=== PATIENT | male | born 1990 | race African-American/Black ===

== ENCOUNTER 2017-02-07 11:55 | Emergency (ER) | payer OTHER ==
[~2017-02-07] VITALS: Ht 177.8 cm; Wt 73.5 kg
[~2017-02-07 11:55] MED LIST: /ACETCOD2T PO; CEPH2CAP PO
[2017-02-07] MEDS ORDERED: [UNRECOGNIZED DRUG - REMARK] PO (12:10)
[2017-02-07 13:43] VITALS: BP 131/77
== END 2017-02-07 13:47 | disposition home or self-care (01) ==
LOC: M ED 13:19
DX: N52.9 Male erectile dysfunction, unspecified (principal); Z79.899 Other long term (current) drug therapy; Z88.8 Allergy status to other drugs, medicaments and biological substances

== ENCOUNTER 2017-07-09 16:27 | Emergency (ER) | payer OTHER, SELFPAY ==
[~2017-07-09] VITALS: Ht 175.3 cm; Wt 72.7 kg
[~2017-07-09 16:27] MED LIST changes: +[UNRECOGNIZED DRUG - REMARK] PO
[2017-07-09] MEDS ORDERED: antidepressant (16:32)
[2017-07-09] MEDS ORDERED: cefTRIAXone SOD 250 MG VIAL (J0696) IM ONE (18:00)
[2017-07-09] MEDS ORDERED: AZITHROMYCIN 250 MG TAB PO ONE (18:00)
[2017-07-09] MEDS ORDERED: metroNIDAZOLE (FLAGYL) 500 MG TAB PO ONE (18:00)
[2017-07-09 18:34] VITALS: BP 138/76
== END 2017-07-09 18:42 | disposition home or self-care (01) ==
LOC: M ED 16:27
DX: Z20.2 Contact with and (suspected) exposure to infections with a predominantly sexual mode of transmission (principal); F99 Mental disorder, not otherwise specified; Z88.8 Allergy status to other drugs, medicaments and biological substances; Z79.899 Other long term (current) drug therapy
CPT/HCPCS: 87491; 87591; 96372; 99283; J0696

== ENCOUNTER → 2018-01-13 | Outpatient (REF) | payer OTHER ==
[2018-01-13 15:35] LABS: CHLAMYDIA DNA AMPLIFICATION NEGATIVE (NEGATIVE); GC DNA AMPLIFICATION NEGATIVE (NEGATIVE)
== END ==
LOC: M LAB REF 13:09
DX: Z11.3 Encounter for screening for infections with a predominantly sexual mode of transmission (principal)

== ENCOUNTER 2018-05-17 15:39 | Emergency (ER) | payer OTHER | END 2018-05-17 16:45 | disposition home or self-care (01) | LOC: M ED 15:39 | DX: S39.002A Unspecified injury of muscle, fascia and tendon of lower back, initial encounter (principal); X58.XXXA Exposure to other specified factors, initial encounter; Y92.89 Other specified places as the place of occurrence of the external cause; F43.10 Post-traumatic stress disorder, unspecified; F33.9 Major depressive disorder, recurrent, unspecified; F41.9 Anxiety disorder, unspecified; G47.33 Obstructive sleep apnea (adult) (pediatric); Z88.8 Allergy status to other drugs, medicaments and biological substances | CPT/HCPCS: 99282 ==

== ENCOUNTER → 2018-06-27 | Outpatient (REF) | payer OTHER | LOC: M LAB REF 16:55 | DX: L03.212 Acute lymphangitis of face (principal) ==

== ENCOUNTER 2018-07-25 23:54 | Emergency (ER) | payer OTHER ==
[2018-07-26] MEDS: NAPROXEN 250 MG TAB PO (03:50)
== END 2018-07-26 03:55 | disposition home or self-care (01) ==
LOC: M ED 23:54
DX: M25.531 Pain in right wrist (principal); W19.XXXA Unspecified fall, initial encounter; Y92.019 Unspecified place in single-family (private) house as the place of occurrence of the external cause
CPT/HCPCS: 73130

== ENCOUNTER 2018-08-14 06:40 | Emergency (ER) | payer OTHER ==
[2018-08-14] MEDS: AMOXICILLIN 500 MG CAP PO (06:58)
== END 2018-08-14 07:01 | disposition home or self-care (01) ==
LOC: M ED 06:40
DX: J02.0 Streptococcal pharyngitis (principal); Z91.89 Other specified personal risk factors, not elsewhere classified
CPT/HCPCS: 99282

== ENCOUNTER 2019-01-28 10:34 | Emergency (ER) | payer MEDICAID, OTHER ==
[~2019-01-28] VITALS: Ht 175.3 cm; Wt 75.0 kg
[~2019-01-28 10:34] MED LIST changes: -/ACETCOD2T PO; +ACET1TAB15 PO; +AMOX500C PO; +BACL10TA2 PO; +DICL75TA PO; +NAPR-837 PO; +antidepressant
[2019-01-28 10:35] VITALS: BP 132/64
[2019-01-28] MEDS ORDERED: ADVI200C5 PO (10:38)
[2019-01-28] MEDS ORDERED: AUGM875T28 PO (10:52)
[2019-01-28] MEDS ORDERED: AUGMENTIN 875 MG TAB PO ONE (11:00)
[2019-01-28] MEDS ORDERED: ACETAMINOPHEN 325 MG TAB PO ONE (11:00)
== END 2019-01-28 11:07 | disposition home or self-care (01) ==
LOC: M ED 10:34
DX: K02.9 Dental caries, unspecified (principal); K08.89 Other specified disorders of teeth and supporting structures; R68.84 Jaw pain; F41.9 Anxiety disorder, unspecified; F43.10 Post-traumatic stress disorder, unspecified; Z91.041 Radiographic dye allergy status

== ENCOUNTER → 2019-03-01 | Outpatient (REF) | payer OTHER ==
[~2019-03-01] MED LIST changes: +ADVI200C5 PO; +AUGM875T28 PO
[2019-03-01 20:33] LABS: CHLAMYDIA DNA AMPLIFICATION NEGATIVE (NEGATIVE); GC DNA AMPLIFICATION NEGATIVE (NEGATIVE)
== END ==
LOC: M LAB REF 16:44
PROVIDERS: ATTEND Physician Assistant
DX: Z11.3 Encounter for screening for infections with a predominantly sexual mode of transmission (principal)

== ENCOUNTER → 2019-03-21 | Outpatient (CLI) | payer OTHER ==
--- NOTE | 2019-03-24 10:12 | SLEEPMSLT ---
DATE OF PROCEDURE: 03/21/2019 ORDERING PROVIDER: Melanie Benítez NP Nocturnal polysomnography with multiple sleep latency testing was performed in this patient with complaints of excessive somnolence and nonrestorative sleep so as to assess sleep physiology. During the initial night testing, 7 hours and 16 minutes of data were reviewed. There were 376 minutes of sleep identified. Sleep latency was mildly prolonged at 29 minutes. Rapid eye movement (REM) latency was mildly prolonged at 131 minutes. Sleep architecture was reasonably well preserved with four to five REM cycles. Overall sleep efficiency was 80.1%. Electrocardiogram showed a wandering baseline with a sinus rhythm with an average heart rate 58 beats per minute. Rate ranged 40-80 beats per minute. Electroencephalogram (EEG) showed fairly normal waveforms for awake and sleep stages. There were no focal events identified. There was only one respiratory event identified of 10 seconds in duration or greater for an apnea-hypopnea index well within normal limits at 0.2. Significant snoring was noted over the course of study, however, respiratory related arousals occurred only 0.8 times per hour and no oxygen desaturations below 90%. There was minimal activity in the limb leads, one train of 30 events, and the limb movement arousal index was only 5.4. Night testing was followed by multiple sleep latency testing. The patient was offered five nap opportunities at 2-hour intervals. Sleep was achieved on four out of five nap opportunities with a mean sleep latency of 6.9 units. REM sleep was suggested on one of five nap opportunities, however, chin EMG criteria was not met. REM activity was seen in five epics with phasic REM in 1 epic. IMPRESSION: Nocturnal polysomnography with multiple sleep latency testing identified borderline hypersomnolence with a mean sleep latency of 6.9 with suggestion of REM sleep on one of five naps would support clinical diagnosis of narcolepsy. It should be noted that chin tone criteria was not seen.
== END ==
LOC: M SLEEP 19:21
PROVIDERS: ATTEND Nurse Practitioner Family
DX: R06.83 Snoring (principal)

== ENCOUNTER 2019-10-08 16:09 | Emergency (ER) | payer OTHER ==
[~2019-10-08] VITALS: Ht 175.3 cm; Wt 75.0 kg
--- NOTE | 2019-10-08 16:45 | REP ---
LEFT HAND COMPLETE: 10/08/2019. Clinical history: Trauma. Findings: Four views are provided. There were no prior studies available. Distal radius and ulna without fracture or focal lesion. Carpal bones and their joint spaces are preserved. 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 Distal carpal row unremarkable. CMC joints, metacarpals and MCP joints intact. The phalanges and their joints were unremarkable. Impression: 1. No visible fracture, avulsion or other acute finding. 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 Electronically Signed by All Hollingsworth MD 10/08/2019 04:36 P
[2019-10-08] MEDS ORDERED: LIDO1CRE2 TOP (17:24)
[2019-10-08 17:26] VITALS: BP 127/69
[2019-10-08] MEDS ORDERED: IBUPROFEN 600 MG TAB PO ONE (17:30)
[2019-10-08] MEDS ORDERED: BACT800T5 PO (17:49)
[2019-10-08] MEDS ORDERED: BACTRIM 160MG/800MG DS TAB PO ONE (18:00)
== END 2019-10-08 18:01 | disposition home or self-care (01) ==
LOC: M ED 16:09
DX: S60.922A Unspecified superficial injury of left hand, initial encounter (principal); L02.811 Cutaneous abscess of head [any part, except face]; W08.XXXA Fall from other furniture, initial encounter; Y92.098 Other place in other non-institutional residence as the place of occurrence of the external cause; Z87.81 Personal history of (healed) traumatic fracture; G47.419 Narcolepsy without cataplexy; Z88.8 Allergy status to other drugs, medicaments and biological substances

== ENCOUNTER 2020-01-02 14:49 | Emergency (ER) | payer OTHER ==
[~2020-01-02] VITALS: Ht 175.3 cm; Wt 73.2 kg
[~2020-01-02 14:49] MED LIST changes: +BACT800T5 PO; +LIDO1CRE2 TOP
[2020-01-02 15:37] LABS: INFLUENZA A AMPLIFICATION NEGATIVE (NEGATIVE); INFLUENZA B AMPLIFICATION POSITIVE (NEGATIVE)
[2020-01-02] MEDS ORDERED: ONDANSETRON 4 MG ORAL DISINTEGRATING TAB (Q0162 PER 1MG) PO ONE (16:30)
[2020-01-02] MEDS ORDERED: IBUPROFEN 600 MG TAB PO ONE (16:30)
[2020-01-02] MEDS ORDERED: ACETAMINOPHEN 500 MG TAB PO ONE (16:30)
[2020-01-02 17:03] LABS: APPEARANCE, URINE HAZY (CLEAR); BACTERIA, URINE AUTO NEGATIVE (NEGATIVE); BILIRUBIN, URINE AUTO NEGATIVE (NEGATIVE); BLOOD, URINE BLOOD NEGATIVE (NEGATIVE); COLOR, URINE YELLOW (YELLOW); GLUCOSE, URINE (UA) AUTO NEGATIVE (NEGATIVE); KETONE, URINE AUTO TRACE mg/dL (NEGATIVE); LEUKOCYTE ESTERASE, URINE AUTO NEGATIVE (NEGATIVE); MUCUS, URINE SMALL (NEGATIVE); NITRITE, URINE AUTO NEGATIVE (NEGATIVE); PROTEIN, URINE AUTO NEGATIVE (NEGATIVE); RBC, URINE AUTO 2 /HPF (0-3); SPECIFIC GRAVITY URINE AUTO 1.031 (1.002-1.035); SQUAMOUS EPITHELIAL CELL UR AU 0 /HPF (0-6); UROBILINOGEN, URINE AUTO 0.2 mg/dL (0.0-2.0); WBC, URINE AUTO 2 /HPF (0-3)
[2020-01-02] MEDS ORDERED: OSEL75CA PO (18:05)
[2020-01-02] MEDS ORDERED: ONDA4TAB6 PO (18:05)
[2020-01-02 18:23] VITALS: BP 118/62
== END 2020-01-02 18:25 | disposition home or self-care (01) ==
LOC: M ED 14:49
DX: J10.89 Influenza due to other identified influenza virus with other manifestations (principal); Z88.8 Allergy status to other drugs, medicaments and biological substances
CPT/HCPCS: 81001; 87502; 99283; Q0162